=== PATIENT | male | born 1945 | race Asian ===

== ENCOUNTER 2016-11-01 08:08 | Day surgery (SDC) | payer MEDICARE, OTHER ==
[~2016-11-01] VITALS: Ht 165.1 cm; Wt 70.5 kg
[2016-11-01] VITALS (9 sets, daily range): BP systolic 92–179; BP diastolic 53–90; PULSE 68–72; RESP 18–20; TEMP 97.9–98.5; O2SAT 96–98
[~2016-11-01 08:08] MED LIST: AMLO5TAB2 PO; DRIS50002 PO; GABA100C4 PO; GLUC500C5 PO; GUAISYP4 PO
[2016-11-01] MEDS ORDERED: SODIUM CHLOR 0.9% 1000 ML IV SCH (09:00)
[2016-11-01 09:23] LABS: AUTOMATED NEUTROPHIL # 3.1 TH/MM3 (1.8-7.7); BASOPHIL % 0.5 % (0.0-2.0); EOSINOPHIL # 0.5 TH/MM3 (0-0.4); EOSINOPHIL % 10.6 % (0.0-4.0); HEMATOCRIT 36.2 % (39.0-51.0); LYMPHOCYTE # 0.8 TH/MM3 (1.0-4.8); MEAN CELL VOLUME 85.8 FL (80.0-100.0); MEAN CORPUSCULAR HEMOGLOBIN 29.9 PG (27.0-34.0); MEAN CORPUSCULAR HGB CONC 34.8 % (32.0-36.0); MONO % 13.1 % (0.0-8.0); NEUT % 59.8 % (16.0-70.0); PLATELET COUNT 46 TH/MM3 (150-450); RED BLOOD COUNT 4.22 MIL/MM3 (4.50-5.90); RED CELL DISTRIBUTION WIDTH 15.6 % (11.6-17.2); WHITE BLOOD COUNT 5.2 TH/MM3 (4.0-11.0)
[2016-11-01 09:43] LABS: HEMO FLAGS AUTO DIFF
[2016-11-01 10:21] LABS: SCAN/DIFF AUTO DIFF CONFIRMED
[2016-11-01] MEDS ORDERED: MIDAZOLAM HCL 5 MG/5 ML VIAL ONE (10:31)
[2016-11-01] MEDS ORDERED: fentaNYL CITRATE 250 MCG/5 ML AMP ONE (10:31)
[2016-11-01] MEDS ORDERED: LIDOCAINE 1%/EPINEPHrine 1:100,000 SOLN 20 ML VIAL ONE (10:43)
--- NOTE | 2016-11-01 13:36 | RADRPT ---
EXAM DATE/TIME: 11/01/2016 11:05 [place] COMPARISON: No previous studies available for comparison. INDICATIONS : Cirrhosis of the liver. SEDATION TIME: 15 minutes BIOPSY SITE: Right liver MEDICATION(S): 1.) 1 mg midazolam (Versed) IV 2.) 100 mcg fentanyl (Sublimaze) IV DEVICE(S): 1.) 18 gauge BioPince needle MEDICAL HISTORY : None. SURGICAL HISTORY : None. ENCOUNTER: Initial ACUITY: 1 day PAIN SCORE: 0/10 LOCATION: Right liver A total of one core specimen(s) were obtained and sent to the laboratory for pathologic evaluation. PROCEDURE: 1. CT guided liver biopsy. 2. Conscious sedation with continuous EKG and oximetry monitoring. Prior to the procedure informed consent was obtained. Any appropriate prior imaging studies were rev iewed. The site was prepped in a sterile fashion. Full sterile technique was used, including cap, mask, xavier rile gloves and gown and a large sterile sheet. Hand hygiene and 2% chlorhexidine and/or betadine/al cohol prep was utilized per protocol for cutaneous antisepsis. The skin and subcutaneous tissues wer e infiltrated with local anesthetic solution. With CT guidance the previously identified target was localized. Biopsy was performed using the presc ribed needle as above. Adequate hemostasis was obtained with compression at the puncture site. Follow-up CT scan reveals no hemorrhage. Apparent cyst is seen in the right lobe of the liver. The patient tolerated the procedure well and there were no complications. The patient was returned to the Radiology Outpatient Unit in stable condition. CONCLUSION: Uncomplicated CT guided biopsy. Teofilo Chow MD FACR on November 01, 2016 at 13:35 Board Certified Radiologist. This report was verified electronically.
[2016-12-20] MEDS ORDERED: PROP10TA6 PO (08:43)
[2016-12-20] MEDS ORDERED: AMLO5TAB2 PO (09:07)
[2016-12-20] MEDS ORDERED: GABA100C4 PO (09:07)
[2017-03-28] MEDS ORDERED: APIX2.5T PO (08:55)
[2017-03-28] MEDS ORDERED: AMLO5TAB2 PO (09:24)
[2017-03-28] MEDS ORDERED: GABA100C4 PO (09:24)
[2017-04-22] MEDS ORDERED: LEVO750T3 PO (09:54)
== END 2016-11-01 15:30 | disposition home or self-care (01) ==
LOC: HRIP 08:08 → HRAD 08:08
PROVIDERS: ATTEND Internal Medicine Gastroenterology
DX: K74.60 Unspecified cirrhosis of liver (principal)
CPT/HCPCS: 47000; 77012; 85025; 88307; 88313; J2250; J3010